=== PATIENT | female | born 1990 | race Caucasian/White ===

== ENCOUNTER 2017-11-06 17:11 | Emergency (ER) | payer OTHER, SELFPAY ==
[2017-11-06 18:40] LABS: #Basophils 0.1 thou/uL (0.0-0.2); #Eosinphils 0.1 thou/uL (0.0-0.7); #Lymphocytes 3.4 thou/uL (1.20-3.40); #Monocytes 0.5 thou/uL (0.11-0.59); #Neutrophils 8.5 thou/uL (1.40-6.50); %Basophils 0.4 % (0.0-1.0); %Lymphocytes 26.9 % (21.0-51.0); %Monocytes 4.1 % (0.0-10.0); %Neutrophils 67.7 % (42.0-75.0); Hemoglobin 13.5 g/dL (12.0-16.0); Mean Corpuscular HGB CONC 33.1 g/dL (32.0-36.0); Mean Corpuscular Hemoglobin 27.3 pg (27.0-31.0); Mean Corpuscular Volume 82.5 fl (81.0-99.0); Mean Platelet Volume 7.6 fL (7.4-10.4); Platelet Count 272 thou/uL (130-400); RBC Distribution Width 14.3 % (11.5-14.5); Red Blood Cell (RBC) Count 4.93 mill/uL (4.20-5.40); White Blood Cell (WBC) Count 12.6 thou/uL (4.8-10.8)
[2017-11-06 19:01] LABS: ALT (SGPT) 10 U/L (8-55); AST (SGOT) 16 U/L (5-34); Albumin 4.3 g/dL (3.5-5.0); Alkaline Phosphatase 71 U/L (40-150); Anion Gap 12 mmol/L (10-20); BUN (Urea Nitrogen) 6 mg/dL (7.0-18.7); Bilirubin, Total 0.4 mg/dL (0.2-1.2); Calc. Creatinine Clearance 0 mL/min (70-130); Calcium 9.5 mg/dL (7.8-10.44); Carbon Dioxide 21 mmol/L (22-29); Chloride 104 mmol/L (98-107); Estimated GFR-MDRD Greater than 90; Globulin 3.8 g/dL (2.4-3.5); Glucose 84 mg/dL (70-105); Potassium 3.2 mmol/L (3.5-5.1); Protein, Total 8.1 g/dL (6.0-8.3); Sodium 134 mmol/L (136-145)
== END 2017-11-06 19:06 | disposition left against medical advice (07) ==
LOC: ERS 17:11
DX: Z53.21 Procedure and treatment not carried out due to patient leaving prior to being seen by health care provider (principal)
CPT/HCPCS: 36415; 80053; 85025

== ENCOUNTER 2018-02-21 13:36 | Day surgery (SDC) | payer OTHER ==
--- NOTE | 2018-02-21 14:50 | PDOC.LDHP ---
Labor and Delivery H&P Chief complaint: abdominal pain HPI: 27 y/o at 29w3d, patient of Dr. Quinteros, presents with lower abdominal pain. Patient has been at [facility] with her son who was released today after a kidney transplant. She was on her way home with him and came straight here for constant lower abdominal and back pain. Denies VB, LOF, or decreased FM. She has not had anything to eat or drink since yesterday. She reports possible STD contact in the last 2 weeks and has had increased discharge. ROS neg for HEENT, cv, pulm, gi, gu, neuro, psych, skin, musculoskeletal or constitutional symptoms other than mentioned above. OB History Details: 1 prior term LTCS for FHRA 2nd LTCS at 30 weeks for PPROM after intervention surgery ( fetus with outlet obstruction, hydronephrosis, oligohydramnios). Current complications: other Past Medical History: Bipolar, anxiety Current medications: pre-murali vitamins, other (Xanax, Lamictal, Prozac) Previous surgical history: low tranverse CS (x2), other (tonsillectomy, intervention surgery (2013)) Allergies/Adverse Reactions: Allergies Allergy/AdvReac Type Severity Reaction Status Date / Time promethazine [From Phenergan] Allergy Verified 02/21/18 15:07 Social history: tobacco use (2 cigarettes per day) - Physical Exam Vital signs reviewed and normal: yes General: NAD, resting Lungs: nonlabored breathing Abdomen: gravid Extremeties: no edema FHT: category 1 (140s, mod variability, + accels, no decels) [place] contractions every: 6 mins, spaced out after fluids - Vaginal Exam cm dilated: 0 Effacement: 0% Station: -3 - OB Labs Blood type: O RH: positive Additional Labs: Laboratory Tests 02/21/18 02/21/18 02/21/18 14:35 14:35 14:50 Urine Color YELLOW Urine Clarity CLOUDY Urine pH 6.5 Ur Specific [place] 1.018 Urine Protein 300 H Urine Glucose (UA) Negative Urine Ketones 40 H Urine Blood Negative Urine Nitrite Negative Urine Bilirubin Negative Urine Urobilinogen 1.0 Ur Leukocyte Esterase Moderate H Urine RBC 0-3 Urine WBC Greater Than 50-TNTC H Ur Squamous Epith Cells 0-3 Urine Bacteria 1+ H Hyaline Casts 4-6 HYALINE CAST H Amnio Swab Test No Membranes Rupture Urine Opiates Screen Detected H Ur Oxycodone Screen Not Detected Urine Methadone Screen Not Detected Ur Propoxyphene Screen Not Detected Ur Barbiturates Screen Not Detected Ur Tricyclics Screen Not Detected Ur Phencyclidine Scrn Not Detected Ur Amphetamines Screen Not Detected U Methamphetamines Scrn Not Detected U Benzodiazepines Scrn Detected H U Cocaine Metab Screen Not Detected U Cannabinoids Screen Detected H Drug Screen Comment Fibronectin 02/21/18 Fibronectin Negative VP3 + for Lu - Assessment 27 y/o at 29w3d with no e/o PTL. Ctx improved after IV fluids. status reassuring with reactive NST. UA consistent with UTI. VP3 + for lu. - Plan -: D/c home with precautions. Given Rx for Macrobid. Advised to use monistat for lu. Follow up as scheduled with Dr. Quinteros on Monday.
[2018-02-21 15:07] LABS: Amnisure Test No Membranes Rupture (No Rupture)
[2018-02-21 15:08] LABS: Amnisure Internal Control QC ACCEPTABLE (ACCEPTABLE)
[2018-02-21 15:13] LABS: Bilirubin Negative (Negative); Blood, Urine Negative (Negative); Clarity CLOUDY (Clear); Glucose, Urine (Dipstick) Negative (Negative); Leukocyte Moderate (Negative); Nitrite Negative (Negative); Protein, Urine (Dipstick) 300 mg/dL (Neg-Trace); Specific Gravity, Urine 1.018 (1.002-1.036); pH, Urine 6.5 (5.0-9.0)
[2018-02-21 15:14] VITALS: BMI 23.0
[2018-02-21 15:15] LABS: Bacteria/HPF 1+ HPF (None Seen); Hyaline Casts/LPF 4-6 HYALINE CAST LPF (0-3 Hyaline); Pathc Cast-AUWi Flag 1.01 (0-2.49); RBC/HPF 0-3 HPF (0-3); Squamous Epithelial 0-3 HPF (0-3)
[2018-02-21 15:28] LABS: FFN Internal QC Analyzer PASS (PASS); FFN Internal QC Cassette PASS (PASS); Fetal Fibronectin Negative (Negative)
[2018-02-21 15:42] LABS: Amphetamine Not Detected (NotDetected); Barbiturates Screen Not Detected (NotDetected); Benzodiazepine Screen Detected (NotDetected); Cocaine Metabolite Screen Not Detected (NotDetected); Medtox Control Line Valid? VALID (VALID); Medtox Reader # READER 1; Methadone Not Detected (NotDetected); Methamphetamine Not Detected (NotDetected); Opiate Screen Detected (NotDetected); Oxycodone Screen Not Detected (NotDetected); Phencyclidine (PCP) Not Detected (NotDetected); THC/Cannabinoid Screen Detected (NotDetected); Tricyclic Screen Not Detected (NotDetected)
[2018-02-21] MEDS ORDERED: Lactated Ringer's 1,000 ML IV SCH (16:00)
== END 2018-02-21 18:02 | disposition home or self-care (01) ==
LOC: L&D/OP 13:36
PROVIDERS: ATTEND Obstetrics & Gynecology
DX: O47.03 False labor before 37 completed weeks of gestation, third trimester (principal); O99.333 Smoking (tobacco) complicating pregnancy, third trimester; F17.210 Nicotine dependence, cigarettes, uncomplicated; Z3A.29 29 weeks gestation of pregnancy; Z88.8 Allergy status to other drugs, medicaments and biological substances
CPT/HCPCS: 51701; 80306; 81001; 82731; 84112; 87480; 87491; 87510; 87591; 87660; 96360; 96361; 99284

== ENCOUNTER 2018-04-08 21:39 | Day surgery (SDC) | payer OTHER ==
[2018-04-08 22:16] VITALS: BP 106/64; TEMP 98.2; BMI 24.8
[2018-04-08] MEDS ORDERED: Bicitra 30 ML UDCUP ONE (22:52)
[2018-04-08] MEDS ORDERED: Ondansetron ODT 8 MG TAB SL SCH (23:00)
[2018-04-08] MEDS ORDERED: Bicitra 30 ML UDCUP PO SCH (23:00)
--- NOTE | 2018-04-08 23:42 | PRG ---
DATE OF SERVICE: 04/08/2018 OB ER ENCOUNTER PRIMARY CONTRACTOR GENERAL BUILDING: Everett Quinteros MD CHIEF COMPLAINT: Heartburn, nausea, vomiting, and back pain. HISTORY OF PRESENT ILLNESS: The patient is a 27-year-old, G3, P2 female with an intrauterine pregnan cy at 36 weeks, who is presenting with several-day history of nausea and vomiting, and not associated with heartburn and lower back pain. The patient reports that her lower back pain is exacerbated wit h activity and movement. She denies uterine contractions. She reports a normal discharge. Denies v aginal bleeding. Denies urinary urgency. Denies any recent illness, fever, fall, headache, chest pa in, shortness of breath, diarrhea, constipation. The patient reports a history of tinea versicolor, which she reports has been returning. PAST MEDICAL HISTORY: Anxiety disorder, bipolar disorder, depression. PAST SURGICAL HISTORY: The patient has had 1 prior . She has had an intrauterine russell apple with her previous . SOCIAL HISTORY: The patient reports about a half pack per day of smoking. Denies drug or alcohol us e. ALLERGIES: No known drug allergies. MEDICATIONS: vitamins and Zofran, which she currently is out of. The patient reports she i s not taking any of her medications for her psychiatric conditions. OBSTETRIC LABORATORY: Blood type is O positive. Antibody screen is reported positive. RPR is nonre active. Hepatitis B surface antigen is nonreactive in the first trimester. RPR is nonreactive in th e first trimester. HIV is nonreactive in the first trimester. GC and chlamydia are negative. She i s rubella immune. Hepatitis C is negative. The patient was noted to have anti-c antibody. REVIEW OF SYSTEMS: Per HPI. PHYSICAL EXAMINATION: VITAL SIGNS: Blood pressure 106/64, heart rate is 70, respiratory rate of 18, temperature 98.2. GENERAL: She appears to be in no acute distress. She is alert and oriented, cooperative, and pleasa nt to interact with. HEENT: Head is normocephalic, atraumatic. LUNGS: Clear to auscultation bilaterally. HEART: Regular rate and rhythm. ABDOMEN: Gravid and soft. She has some ogrxkqw-os-ybnkviam groin tenderness with palpation of the u terus. She also has SI joint tenderness bilaterally. EXTREMITIES: Nontender, nonedematous. CERVICAL EXAM: Closed on last exam. heart tracing performed for back pain. Noted duration is approximately 40 minutes. Baseline i s noted to be in the 130s with moderate long-term variability, positive accelerations, no deceleratio ns. The tocometer showed some irritability, but not felt by the patient. ASSESSMENT AND PLAN: The patient's primary concerns are nausea and vomiting at night, last 3 nights, associated with bad heartburn; and has SI joint tenderness or pain. The patient has no evidence of labor at this time. Fetus has a reactive NST. The patient will be given a dose of Bicitra here to h elp neutralize the acid in her stomach and 8 mg of Zofran sublingually. The patient is being given i nstructions to take a trial of Zantac twice a day [id number] to help with acid reduction, which may help improve her nausea and vomiting. We will also be giving a prescription of Zofran to take p .r.n. #10 and I have encouraged her to take 2 Tylenol 3 times a day to help with her back pain, as we ll as local warmth or heat as needed for back discomfort. The patient will be discharged to home.
== END 2018-04-08 23:10 | disposition home or self-care (01) ==
LOC: L&D/OP 21:39
PROVIDERS: ATTEND Obstetrics & Gynecology
DX: O99.89 Other specified diseases and conditions complicating pregnancy, childbirth and the puerperium (principal); R11.2 Nausea with vomiting, unspecified; R12 Heartburn; M54.9 Dorsalgia, unspecified; Z3A.36 36 weeks gestation of pregnancy
CPT/HCPCS: 99283

== ENCOUNTER 2018-04-30 07:36 | Inpatient (IN) | payer OTHER ==
[2018-04-30 08:20] VITALS: BMI 24.7
--- NOTE | 2018-04-30 08:57 | PDOC.LDHP ---
Labor and Delivery H&P Chief complaint: contractions HPI: 27 y/o at 39w1d, patient of Dr. Quinteros, presents with decreased FM and ctx. Denies VB, LOF, or decreased FM. Ctx every 14-15 mins. ROS neg for HEENT, cv, pulm, gi, gu, neuro, psych, skin, musculoskeletal or constitutional symptoms other than mentioned above. OB History Details: 1 prior LTCS at 30 weeks 1 prior term LTCS Current complications: none Current medications: pre- vitamins Previous surgical history: low tranverse CS (x2) Allergies/Adverse Reactions: Allergies Allergy/AdvReac Type Severity Reaction Status Date / Time No Known Allergies Allergy Verified 04/30/18 08:20 Social history: none - Physical Exam Vital signs reviewed and normal: yes General: NAD, resting Lungs: nonlabored breathing Abdomen: gravid Extremeties: no edema FHT: category 1 (130s, mod variability, + accels, no decels) [place] contractions every: q15 mins - Vaginal Exam cm dilated: 1 Effacement: 0% Station: -3 - OB Labs Blood type: O RH: positive - Assessment 27 y/o at 39w1d with no e/o active labor. Ctx spaced out and less painful after fluids. status reassuring with reactive NST. - Plan -: D/c home with precautions. Scheduled for repeat LTCS on Monday.
[2018-04-30] MEDS ORDERED: Dextrose 5%-Lactated Ringers 1,000 ML IV SCH (09:15)
[2018-04-30] MEDS ORDERED: Ondansetron HCl/PF 4 MG/2 ML Vial IVP PRN ×4 (10:49→22:41)
[2018-04-30] MEDS ORDERED: Promethazine HCl 25 MG/ML VIAL IM PRN ×3 (10:49→22:41)
[2018-04-30] MEDS ORDERED: CEFAZOLIN/Water 2 GM/20 ML SYRINGE SLOW IVP SCH (11:00)
[2018-04-30] MEDS ORDERED: Bicitra 30 ML UDCUP PO SCH (11:00)
[2018-04-30] MEDS: Lactated Ringer's 1,000 ML IV SCH ×3 (11:07→23:29)
[2018-04-30 11:13] LABS: Hemoglobin 10.8 g/dL (12.0-16.0); Mean Corpuscular HGB CONC 31.6 g/dL (32.0-36.0); Mean Corpuscular Hemoglobin 24.6 pg (27.0-31.0); Mean Corpuscular Volume 77.6 fL (78.0-98.0); Mean Platelet Volume 9.2 fL (7.4-10.4); Platelet Count 249 thou/uL (130-400); RBC Distribution Width 13.9 % (11.5-14.5); Red Blood Cell (RBC) Count 4.39 mill/uL (4.20-5.40); White Blood Cell (WBC) Count 9.9 thou/uL (4.8-10.8)
[2018-04-30 11:51] LABS: HBSAg Index 0.24 S/CO (0-0.99); Hep B Surf Ag Non-Reactive S/CO (NonReactive)
[2018-04-30 11:55] LABS: Syphilis Antibody Nonreactive (Nonreactive); Syphilis Antibody Index 0.03 S/CO (<1.00 Non-Reactive)
[2018-04-30 12:29] LABS: Medtox Reader # READER 4
[2018-04-30 12:30] LABS: Amphetamine Not Detected (NotDetected); Barbiturates Screen Not Detected (NotDetected); Benzodiazepine Screen Not Detected (NotDetected); Cocaine Metabolite Screen Not Detected (NotDetected); Medtox Control Line Valid? VALID (VALID); Methadone Not Detected (NotDetected); Methamphetamine Not Detected (NotDetected); Opiate Screen Not Detected (NotDetected); Oxycodone Screen Not Detected (NotDetected); Phencyclidine (PCP) Not Detected (NotDetected); THC/Cannabinoid Screen Not Detected (NotDetected); Tricyclic Screen Not Detected (NotDetected)
[2018-04-30] MEDS: Butorphanol Tartrate 1 MG/ML VIAL SLOW IVP PRN ×2 (15:30→18:30)
[2018-04-30] MEDS ORDERED: Acetaminophen 1,000 MG in Premix Bag 1 BAG IVPB PRN (17:08)
[2018-04-30] MEDS ORDERED: Naloxone HCl 0.4 mg/ml Vial IVP PRN ×2 (17:08)
[2018-04-30] MEDS ORDERED: Eucerin (Mineral Oil/Petrolatum,White) 30 gm Jar TOP PRN (17:08)
[2018-04-30] MEDS ORDERED: Naloxone HCl 0.4 mg/ml Vial IV PRN (17:08)
[2018-04-30] MEDS ORDERED: diphenhydrAMINE 50 MG/ML VIAL IVP PRN (17:08)
[2018-04-30] MEDS ORDERED: Promethazine HCl 25 MG SUPP PR PRN (17:08)
[2018-04-30] MEDS ORDERED: Ketorolac Tromethamine 30 MG/ML VIAL IVP SCH (17:15)
[2018-04-30] MEDS ORDERED: Communication Order-Pharmacy FS SCH (17:15)
--- NOTE | 2018-04-30 19:15 | PDOC.LDPN ---
Labor & Delivery Progress Note - Subjective Subjective: painful contractions - Objective Vital signs reviewed and normal: yes General: breathing through contractions Uterine fundus: non tender SVE: repoeat exam declined -: 39 and 1/7 weeks with oligihydramnios, and early labor with a history of two previous C-Sections. Type and Screen revealed two antibodies in the blood. 2 units of pRBC were ordered but had to be brought in by ground from [place], [place] today, and just arrived about one hour ago. We are next in line to go back for C -Section (3rd, repeat). Patient complains of being hungry and uncomfortable, and is likely anxious from decreased nicotine levels compounding the increased anxiety of having surgery/bipolar disorder.
[2018-04-30] MEDS ORDERED: Morphine PF 1 MG/ML SYR ONE (19:21)
[2018-04-30] MEDS ORDERED: Bupivacaine 0.75% W/DEXTROSE 8.25% 2 ML AMP ONE (19:21)
[2018-04-30] MEDS ORDERED: Lidocaine 1% PF 5 ML VIAL ONE (19:21)
[2018-04-30] MEDS ORDERED: Ondansetron HCl/PF 4 MG/2 ML Vial ONE (19:42)
[2018-04-30] MEDS ORDERED: PHENYLEPHRINE-NS 100 MCG/ML 10 ML SYRINGE ONE (19:42)
[2018-04-30] MEDS ORDERED: Oxytocin 10 UNITS/ML VIAL ONE ×2 (19:56→19:57)
[2018-04-30] MEDS ORDERED: Ketorolac Tromethamine 30 MG/ML VIAL ONE (19:58)
[2018-04-30] MEDS ORDERED: Dexamethasone 4 mg/ml Vial ONE (19:58)
[2018-04-30] MEDS ORDERED: Measles/Mumps/Rubella 10 MCG/0.5 ML VIAL SC ONE (22:41)
[2018-04-30] MEDS ORDERED: Zolpidem Tartrate 5 MG TAB PO PRN (22:41)
[2018-04-30] MEDS ORDERED: Methylergonovine 0.2 MG/ML VIAL IM PRN (22:41)
[2018-04-30] MEDS ORDERED: NS / Oxytocin 40 units/1000ml 1,000 ML IV SCH (22:41)
[2018-04-30] MEDS ORDERED: Varicella virus, LIVE 0.5 ML VIAL SC ONE (22:41)
[2018-04-30] MEDS ORDERED: Lanolin Ointment 7 GM TUBE TOP PRN (22:41)
[2018-04-30] MEDS ORDERED: Adacel (T-DAP) 0.5 ML VIAL IM ONE (22:41)
[2018-04-30] MEDS ORDERED: Misoprostol 200 MCG TAB PR PRN (22:41)
[2018-04-30] MEDS ORDERED: Bisacodyl 10 MG SUPP PR PRN (22:41)
[2018-04-30] MEDS ORDERED: diphenhydrAMINE 25 MG CAP PO PRN (22:41)
[2018-04-30] MEDS ORDERED: Docusate Calcium (SURFAK) 240 MG CAP PO SCH (23:15)
[2018-04-30] MEDS ORDERED: Acetaminophen 1,000 MG in Premix Bag 1 BAG IVPB SCH (23:30)
[2018-05-01] MEDS: Ketorolac Tromethamine 30 MG/ML VIAL IVP SCH ×4 (01:32→22:59)
[2018-05-01] MEDS ORDERED: Sodium Chloride 0.9% 10 ML ONE (05:35)
[2018-05-01 05:39] LABS: Hemoglobin 9.9 g/dL (12.0-16.0); Mean Corpuscular HGB CONC 31.3 g/dL (32.0-36.0); Mean Corpuscular Hemoglobin 24.5 pg (27.0-31.0); Mean Corpuscular Volume 78.3 fL (78.0-98.0); Mean Platelet Volume 7.9 fL (7.4-10.4); Platelet Count 295 thou/uL (130-400); RBC Distribution Width 13.9 % (11.5-14.5); Red Blood Cell (RBC) Count 4.05 mill/uL (4.20-5.40); White Blood Cell (WBC) Count 18.9 thou/uL (4.8-10.8)
[2018-05-01] MEDS: Simethicone Chewable 80 MG TAB PO PRN ×2 (07:37→20:06)
[2018-05-01] MEDS: Docusate Calcium (SURFAK) 240 MG CAP PO SCH ×2 (09:18→20:07)
[2018-05-01] MEDS: Prenatal Vitamin 1 TAB PO SCH (09:18)
[2018-05-01] MEDS: HYDROcodone/Acetaminophen 5/325 mg Tablet PO PRN ×2 (09:19→20:06)
[2018-05-01] MEDS: Ibuprofen 800 MG TAB PO SCH ×2 (15:11→21:47)
--- NOTE | 2018-05-01 19:02 | PDOC.PP ---
Post Progress Note Post Day #: 1 Subjective: Patient ambulating well, no new complaints. PO intake tolerated: yes Flatus: yes Ambulation: yes Vital Signs (12 hours) Temp Pulse Resp BP Pulse Ox 05/01/18 16:23 98.1 F 64 18 116/54 L 100 05/01/18 07:30 97.2 F L 67 13 91/52 L Weight Weight 140 lb - Physical Examination General: NAD Cardiovascular: no m/r/g Respiratory: clear to auscultation bilaterally Abdominal: + bowel sounds Skin: CS incision dry & intact Neurological: no gross focal deficits Psychiatric: A&Ox3 Result Diagrams: 05/01/18 05:05 Additional Labs: Post Labs Blood Type O POSITIVE 04/30/18 09:22 Hep Bs Antigen Non-Reactive S/CO (NonReactive) 04/30/18 09:22 - Assessment/Plan POD #1, Possible DC tomorrow. Patient will restart home Xantac for GERD.
[2018-05-02] MEDS: Ibuprofen 800 MG TAB PO SCH (05:33)
[2018-05-02] MEDS: HYDROcodone/Acetaminophen 5/325 mg Tablet PO PRN ×2 (05:33→09:30)
[2018-05-02] MEDS: Docusate Calcium (SURFAK) 240 MG CAP PO SCH (09:27)
[2018-05-02] MEDS: Prenatal Vitamin 1 TAB PO SCH (09:27)
[2018-05-02 10:16] VITALS: TEMP 97.9
[2018-05-02 11:54] VITALS: BP 120/56
--- NOTE | 2018-05-02 11:54 | OP ---
DATE OF SERVICE: 04/30/2018 PREOPERATIVE DIAGNOSES: Intrauterine at 39 weeks and 1 day with oligohydramnios, history o f two previous sections, and early labor. POSTOPERATIVE DIAGNOSES: Intrauterine at 39 weeks 1 day with oligohydramnios, history of t wo previous sections, and early labor. PROCEDURE: Repeat low transverse section. FINDINGS: Viable female weighing 2962 grams or 6 pounds 8 ounces, Apgars 8 and 9. Quantitati ve blood loss 425 mL COMPLICATIONS: None. DETAILS OF THE PROCEDURE: The patient was consented and taken back to the operating room where spina l anesthesia was found to be adequate. She was then prepped and draped in the normal sterile fashion . A time out was performed by the entire operative team. The incision was then marked with a marking pen tested using sharp pickups. An incision was then made with a scalpel. The incision was carried through the adipose tissue down to the underlying rectus fascia using both sharp dissection as well as cautery. Once the fascia was identified, it was incised in the midline and then the fascial incis ion was carried through in both lateral directions using sharp as well as cautery dissection techniqu es. Next, the superior aspect of the rectus fascia was grasped with 2 Sammy clamps which was tented up and the rectus muscles were dissected off using blunt dissection as well as cautery dissection. Similarly, the inferior aspect of the fascial incision was grasped with 2 Sammy clamps, tented up an d the rectus muscles were dissected off bluntly as well as sharply. Next, the rectus muscles were se parated in the midline and the peritoneum identified. The peritoneum was then carefully grasped with two hemostats and entered sharply. The peritoneal incision was extended superiorly and inferiorly a nd bladder blade was placed in the lower abdomen. At this point, the uterus was identified and the b ladder flap was then developed using pickups with teeth as well as Metzenbaum scissors in both latera l directions. The bladder flap was then dissected downwards using the skiff operator's finger as well as M etzenbaum scissors. The bladder blade was replaced. The lower uterine segment was then identified a nd entered sharply using a clean scalpel. The uterine incision was then dissected downwards until th in layer of muscle remained and this was entered bluntly using a hemostat to avoid any injury to the baby. The uterine incision was then stretched using two fingers in both lateral directions. An amniotomy was performed artificially using a hemostat and the baby was delivered using fundal pres sure in a gentle fashion. Once out, the baby's mouth and nose were bulb suctioned, cord clamped and cut, and the baby was handed to waiting attendants. Next, the uterus was exteriorized, cleared of al l clots and debris and the uterine incision was repaired with #1 Monocryl in a running locking fashio n. A second suture of the same type was used to obtain complete hemostasis at the uterine incision. The bladder flap was reapproximated using 3-0 Monocryl. Next, patient's left and right adnexa were inspected and appeared to be within normal limits. The posterior cul-de-sac was blotted dry and hemo stasis assured. One more look at the uterine incision demonstrated hemostasis. Next, the uterus was replaced back within the abdomen. The peritoneum was reapproximated using 2-0 Monocryl without diff iculty. The rectus muscles were then allowed to come back together and 0 chromic was used to aid in reapproximation of the muscle as necessary. The rectus fascia was then reapproximated in a running f ashion using 0 Vicryl suture. The adipose tissue was then examined and appeared to be well approxima joseph without any obvious separations. Finally, the skin was reapproximated with 3-0 Monocryl on a Lopez th needle without difficulty and Dermabond adhesive was applied to the skin. Once the glue was dry, the drapes were removed and the patient was transferred to an ambulatory bed where she was taken to [facility] awake and in stable condition. Sponge, lap, and needle counts were correct x3.
[2018-05-02] MEDS ORDERED: Ibuprofen 800 MG TAB PO SCH (22:00)
== END 2018-05-02 13:25 | disposition home or self-care (01) | DRG 765 ==
LOC: L&D/OP 07:36 → L&D 10:55 → 3SW 22:41
PROVIDERS: ADMIT Obstetrics & Gynecology; ATTEND Obstetrics & Gynecology
PROC: 10D00Z1 Extraction of Products of Conception, Low, Open Approach (ICD-10-PCS; principal; 2018-04-30)
DX: O34.211 Maternal care for low transverse scar from previous cesarean delivery (principal); O41.03X0 Oligohydramnios, third trimester, not applicable or unspecified; O99.62 Diseases of the digestive system complicating childbirth; K21.9 Gastro-esophageal reflux disease without esophagitis; Z3A.39 39 weeks gestation of pregnancy; Z37.0 Single live birth
CPT/HCPCS: 36415; 51702; 76815; 80306; 85027; 86780; 86850; 86870; 86900; 86901; 86905; 86922; 87340; 99285; A4216; J0131; J0595; J1100; J1885; J2001; J2274; J2405; J2590; J3490

== ENCOUNTER 2018-07-01 20:55 | Emergency (ER) | payer OTHER | END 2018-07-01 21:35 | disposition home or self-care (01) | LOC: ERS 20:55 | DX: L30.4 Erythema intertrigo (principal); F98.8 Other specified behavioral and emotional disorders with onset usually occurring in childhood and adolescence; R63.0 Anorexia; F17.210 Nicotine dependence, cigarettes, uncomplicated; F42.9 Obsessive-compulsive disorder, unspecified; F41.9 Anxiety disorder, unspecified; F31.9 Bipolar disorder, unspecified | CPT/HCPCS: 99282 ==

== ENCOUNTER 2019-05-17 14:02 | Emergency (ER) | payer MEDICAID, OTHER ==
[2019-05-17] MEDS ORDERED: traMADol HCl 50 MG TAB ONE (14:44)
[2019-05-17] MEDS ORDERED: Dexamethasone 10 MG/ML VIAL ONE (14:44)
== END 2019-05-17 14:55 | disposition home or self-care (01) ==
LOC: ERS 14:02
DX: J20.9 Acute bronchitis, unspecified (principal); Z71.6 Tobacco abuse counseling; F31.9 Bipolar disorder, unspecified; F98.8 Other specified behavioral and emotional disorders with onset usually occurring in childhood and adolescence; F42.9 Obsessive-compulsive disorder, unspecified; F17.210 Nicotine dependence, cigarettes, uncomplicated; F41.9 Anxiety disorder, unspecified; Z79.899 Other long term (current) drug therapy
CPT/HCPCS: 99406; J1100

== ENCOUNTER 2020-12-22 09:25 | Emergency (ER) | payer MEDICARE, MEDICAID ==
[2020-12-22] MEDS ORDERED: Lidocaine 1% (PF) 30 ML VIAL ONE (09:48)
[2020-12-22] MEDS ORDERED: Ketorolac Tromethamine 30 MG/ML VIAL ONE (11:15)
[2020-12-22] MEDS ORDERED: Boostrix 0.5 ML (Tdap) VIAL ONE (11:15)
[2020-12-22] MEDS ORDERED: Bacitracin 1 PK ONE (11:15)
== END 2020-12-22 11:45 | disposition home or self-care (01) ==
LOC: ERS 09:25
DX: L02.413 Cutaneous abscess of right upper limb (principal); L02.423 Furuncle of right upper limb; F17.210 Nicotine dependence, cigarettes, uncomplicated
CPT/HCPCS: 10060; 90471; 90715; 96372; J1885; J2001

== ENCOUNTER 2022-04-22 15:13 | Emergency (ER) | payer MEDICAID, MEDICARE ==
[2022-04-22] MEDS ORDERED: Lidocaine 1% (PF) 30 ML VIAL ONE (15:53)
[2022-04-22] MEDS ORDERED: Lidocaine 1% MPF 2 ML VIAL ONE (15:54)
[2022-04-22] MEDS ORDERED: HYDROcodone/Acetaminophen 10/325 mg Tablet ONE (16:13)
== END 2022-04-22 16:32 | disposition home or self-care (01) ==
LOC: ERS 15:13
DX: N76.4 Abscess of vulva (principal); F17.210 Nicotine dependence, cigarettes, uncomplicated
CPT/HCPCS: 56405; J2001

== ENCOUNTER 2022-05-07 02:09 | Emergency (ER) | payer MEDICAID, MEDICARE | END 2022-05-07 03:29 | disposition home or self-care (01) | LOC: ERS 02:09 | DX: T19.2XXA Foreign body in vulva and vagina, initial encounter (principal); F17.210 Nicotine dependence, cigarettes, uncomplicated | CPT/HCPCS: 99283 ==

== ENCOUNTER 2022-07-03 22:32 | Emergency (ER) | payer MEDICARE, MEDICAID ==
[2022-07-03 23:10] LABS: #Eosinphils 0.4 thou/uL (0.0-0.7); #Lymphocytes 2.2 thou/uL (1.20-3.40); #Monocytes 0.7 thou/uL (0.11-0.59); #Neutrophils 3.7 thou/uL (1.40-6.50); %Basophils 0.4 % (0.0-1.0); %Eosinophils 6.1 % (0.0-10.0); %Lymphocytes 31.5 % (21.0-51.0); %Monocytes 10.1 % (0.0-10.0); %Neutrophils 51.8 % (42.0-75.0); Mean Corpuscular HGB CONC 33.4 g/dL (32.0-36.0); Mean Corpuscular Hemoglobin 30.6 pg (27.0-31.0); Mean Corpuscular Volume 91.7 fl (78.0-98.0); Mean Platelet Volume 7.2 fL (7.4-10.4); Platelet Count 250 10x3/uL (130-400); RBC Distribution Width 12.8 % (11.5-14.5); Red Blood Cell (RBC) Count 4.24 mill/uL (4.20-5.40); White Blood Cell (WBC) Count 7.1 10x3/uL (4.8-10.8)
[2022-07-03 23:32] LABS: ALT (SGPT) 11 U/L (8-55); AST (SGOT) 14 U/L (5-34); Albumin 4.2 g/dL (3.5-5.0); Alkaline Phosphatase 74 U/L (40-110); Anion Gap 11 mmol/L (10-20); BUN (Urea Nitrogen) 9 mg/dL (7.0-18.7); Bilirubin, Total 0.2 mg/dL (0.2-1.2); Calc. Creatinine Clearance 0 mL/min (70-130); Calcium 9.1 mg/dL (7.8-10.44); Carbon Dioxide 27 mmol/L (22-29); Chloride 102 mmol/L (98-107); Estimated GFR 97; Globulin 3.2 g/dL (2.4-3.5); Glucose 82 mg/dL (70-105); Potassium 3.7 mmol/L (3.5-5.1); Protein, Total 7.4 g/dL (6.0-8.3); Sodium 136 mmol/L (136-145)
[2022-07-03 23:43] LABS: BHCG - Serum Negative (NEGATIVE); Pregs Control Background? CLEAR/WHITE (CLR/WHITE); Pregs Control Bar Appear? YES (CONTROL BAR)
== END 2022-07-04 00:20 | disposition home or self-care (01) ==
LOC: ERS 22:32
DX: R07.1 Chest pain on breathing (principal); F17.210 Nicotine dependence, cigarettes, uncomplicated
CPT/HCPCS: 36415; 71045; 80053; 84484; 84703; 85025; 85379; 93005

== ENCOUNTER 2022-07-04 09:17 | Emergency (ER) | payer MEDICARE, MEDICAID ==
[2022-07-04] MEDS ORDERED: Acetaminophen 500 MG TAB ONE (09:55)
== END 2022-07-04 10:55 | disposition home or self-care (01) ==
LOC: ERS 09:17
DX: J10.1 Influenza due to other identified influenza virus with other respiratory manifestations (principal)
CPT/HCPCS: 87804; 99283

== ENCOUNTER 2022-07-12 18:06 | Emergency (ER) | payer MEDICARE, MEDICAID ==
[2022-07-12] MEDS ORDERED: Acetaminophen 500 MG TAB ONE (18:43)
[2022-07-12] MEDS ORDERED: Ondansetron PF 4 MG/2 ML Vial ONE (18:43)
[2022-07-12 18:52] LABS: #Basophils 0.1 thou/uL (0.0-0.2); #Eosinphils 0.4 thou/uL (0.0-0.7); #Lymphocytes 5.5 thou/uL (1.20-3.40); #Monocytes 0.6 thou/uL (0.11-0.59); #Neutrophils 4.7 thou/uL (1.40-6.50); %Basophils 0.5 % (0.0-1.0); %Eosinophils 3.6 % (0.0-10.0); %Lymphocytes 48.4 % (21.0-51.0); %Monocytes 5.7 % (0.0-10.0); %Neutrophils 41.8 % (42.0-75.0); Hemoglobin 14.3 g/dL (12.0-16.0); Mean Corpuscular HGB CONC 32.5 g/dL (32.0-36.0); Mean Corpuscular Hemoglobin 29.2 pg (27.0-31.0); Mean Corpuscular Volume 89.8 fl (78.0-98.0); Mean Platelet Volume 7.6 fL (7.4-10.4); Platelet Count 391 10x3/uL (130-400); RBC Distribution Width 12.9 % (11.5-14.5); White Blood Cell (WBC) Count 11.3 10x3/uL (4.8-10.8)
[2022-07-12 18:58] LABS: Bilirubin 2+ (Negative); Blood, Urine Negative (Negative); Clarity Clear (Clear); Glucose, Urine (Dipstick) Normal (Negative); Ketone, Urine Negative (Negative); Leukocyte Negative Leu/uL (Negative); Nitrite 2+ (Negative); Protein, Urine (Dipstick) Negative (Neg-Trace); RBC/HPF 0-3 HPF (0-3); Specific Gravity, Urine 1.006 (1.002-1.036); Squamous Epithelial 0-3 HPF (0-3); WBC/HPF 0-3 HPF (0-3)
[2022-07-12 19:02] LABS: BHCG - Serum Negative (NEGATIVE); Pregs Control Background? CLEAR/WHITE (CLR/WHITE); Pregs Control Bar Appear? YES (CONTROL BAR)
[2022-07-12 19:02] LABS: Bacteria/HPF 1+ HPF (None Seen)
== END 2022-07-12 20:57 | disposition home or self-care (01) ==
LOC: ERS 18:06
DX: J11.1 Influenza due to unidentified influenza virus with other respiratory manifestations (principal); E86.0 Dehydration; R11.2 Nausea with vomiting, unspecified; F17.210 Nicotine dependence, cigarettes, uncomplicated
CPT/HCPCS: 81003; 81015; 84703; 85025; 93005; 96361; 96374; J2405

== ENCOUNTER 2022-11-27 09:44 | Observation (INO) | payer MEDICAID, SELFPAY ==
[~2022-11-27 09:44] MED LIST: Iopamidol-370 76% 500 ML MDV (1 ML CHARGE) ONE
[2022-11-27] MEDS ORDERED: Ondansetron PF 4 MG/2 ML Vial ONE (11:08)
[2022-11-27] MEDS ORDERED: Famotidine/PF 20 mg/2ml Vial ONE (11:08)
[2022-11-27 11:55] LABS: #Basophils 0.1 thou/uL (0.0-0.2); #Eosinphils 0.4 thou/uL (0.0-0.7); #Lymphocytes 3.4 thou/uL (1.20-3.40); #Monocytes 0.6 thou/uL (0.11-0.59); #Neutrophils 6.4 thou/uL (1.40-6.50); %Basophils 0.8 % (0.0-1.0); %Eosinophils 3.9 % (0.0-10.0); %Lymphocytes 30.9 % (21.0-51.0); %Monocytes 5.7 % (0.0-10.0); %Neutrophils 58.8 % (42.0-75.0); Hemoglobin 12.7 g/dL (12.0-16.0); Mean Corpuscular Volume 84.7 fl (78.0-98.0); Mean Platelet Volume 8.1 fL (7.4-10.4); Platelet Count 354 10x3/uL (130-400); Red Blood Cell (RBC) Count 4.54 mill/uL (4.20-5.40); White Blood Cell (WBC) Count 10.9 10x3/uL (4.8-10.8)
[2022-11-27 11:59] LABS: BHCG - Serum Negative (NEGATIVE); Pregs Control Background? CLEAR/WHITE (CLR/WHITE); Pregs Control Bar Appear? YES (CONTROL BAR)
[2022-11-27 12:09] LABS: ALT (SGPT) 13 U/L (8-55); AST (SGOT) 18 U/L (5-34); Albumin 4.7 g/dL (3.5-5.0); Alkaline Phosphatase 93 U/L (40-110); Anion Gap 18 mmol/L (10-20); BUN (Urea Nitrogen) 9 mg/dL (7.0-18.7); Bilirubin, Total 0.4 mg/dL (0.2-1.2); Calc. Creatinine Clearance 0 mL/min (70-130); Calcium 9.6 mg/dL (7.8-10.44); Carbon Dioxide 26 mmol/L (22-29); Chloride 101 mmol/L (98-107); Estimated GFR 103; Globulin 3.4 g/dL (2.4-3.5); Glucose 89 mg/dL (70-105); Lipase 13 U/L (8-78); Potassium 4.1 mmol/L (3.5-5.1); Protein, Total 8.1 g/dL (6.0-8.3); Sodium 141 mmol/L (136-145)
[2022-11-27] MEDS ORDERED: Acetaminophen 500 MG TAB ONE (13:03)
[2022-11-27] MEDS ORDERED: Ketorolac Tromethamine 30 MG/ML VIAL ONE (13:11)
[2022-11-27 13:13] LABS: Bilirubin Negative (Negative); Blood, Urine Negative (Negative); Clarity Clear (Clear); Glucose, Urine (Dipstick) Normal (Negative); Ketone, Urine Negative (Negative); Leukocyte Negative Leu/uL (Negative); Nitrite Negative (Negative); Protein, Urine (Dipstick) Negative (Neg-Trace); Specific Gravity, Urine 1.011 (1.002-1.036); Urobilinogen Normal mg/dL (Less than 2); pH, Urine 7.5 (5.0-9.0)
[2022-11-27] MEDS ORDERED: cefTRIAXone (ROCEPHIN) 2 GM VIAL ONE (14:30)
[2022-11-27 14:49] LABS: Lactic Acid 1.5 mmol/L (0.5-2.2)
[2022-11-27] MEDS ORDERED: Acetaminophen 325 MG TAB PO PRN (16:32)
[2022-11-27] MEDS ORDERED: Ondansetron PF 4 MG/2 ML Vial IVP PRN (16:32)
[2022-11-27] MEDS ORDERED: cefTRIAXone\\ROCEPHIN 1 GM in Sodium Chloride 0.9% 100 ML IVPB SCH (16:45)
[2022-11-27] MEDS: Sodium Chloride 0.9% 1,000 ML IV SCH (21:06)
[2022-11-27 23:19] VITALS: BMI 32.5
[2022-11-28] MEDS: Sodium Chloride 0.9% 1,000 ML IV SCH ×3 (01:11→14:22)
[2022-11-28 06:15] LABS: #Basophils 0.1 thou/uL (0.0-0.2); #Eosinphils 0.6 thou/uL (0.0-0.7); #Lymphocytes 3.7 thou/uL (1.20-3.40); #Monocytes 0.5 thou/uL (0.11-0.59); #Neutrophils 4.7 thou/uL (1.40-6.50); %Basophils 0.7 % (0.0-1.0); %Eosinophils 6.4 % (0.0-10.0); %Lymphocytes 38.5 % (21.0-51.0); %Monocytes 5.2 % (0.0-10.0); %Neutrophils 49.2 % (42.0-75.0); Hemoglobin 10.2 g/dL (12.0-16.0); Mean Corpuscular HGB CONC 32.5 g/dL (32.0-36.0); Mean Corpuscular Hemoglobin 27.9 pg (27.0-31.0); Mean Platelet Volume 7.9 fL (7.4-10.4); Platelet Count 303 10x3/uL (130-400); Red Blood Cell (RBC) Count 3.65 mill/uL (4.20-5.40); White Blood Cell (WBC) Count 9.5 10x3/uL (4.8-10.8)
[2022-11-28 06:51] LABS: Anion Gap 11 mmol/L (10-20); BUN (Urea Nitrogen) 8 mg/dL (7.0-18.7); Calc. Creatinine Clearance 146 mL/min (70-130); Calcium 8.1 mg/dL (7.8-10.44); Carbon Dioxide 22 mmol/L (22-29); Chloride 110 mmol/L (98-107); Estimated GFR 113; Glucose 88 mg/dL (70-105); Potassium 3.6 mmol/L (3.5-5.1); Sodium 139 mmol/L (136-145)
[2022-11-28] MEDS ORDERED: cefTRIAXone\\ROCEPHIN 1 GM in Sodium Chloride 0.9% 100 ML IVPB SCH (15:00)
[2022-11-28 17:08] VITALS: BP 109/75; TEMP 98.1
== END 2022-11-28 17:20 | disposition home or self-care (01) ==
LOC: ERS 09:44 → SURG A 16:11
PROVIDERS: ADMIT Internal Medicine; ATTEND Internal Medicine
DX: R11.10 Vomiting, unspecified (principal); E87.20 Acidosis, unspecified; F17.210 Nicotine dependence, cigarettes, uncomplicated; Z79.890 Hormone replacement therapy; Z79.899 Other long term (current) drug therapy; Z88.8 Allergy status to other drugs, medicaments and biological substances
CPT/HCPCS: 36415; 74177; 80048; 80053; 81003; 83605; 83690; 84484; 84703; 85025; 87040; 93005; 96372; 96376; G0378; J0696; J1650; J1885; J2405; J7050; Q9967; S0028

== ENCOUNTER 2023-03-26 08:39 | Emergency (ER) | payer SELFPAY ==
[2023-03-26] MEDS ORDERED: metroNIDAZOLE 250 MG TAB ONE (09:28)
[2023-03-26] MEDS ORDERED: cefTRIAXone (ROCEPHIN) 500 MG VIAL ONE (09:28)
[2023-03-26] MEDS ORDERED: Doxycycline 100 MG CAP ONE (09:28)
[2023-03-26] MEDS ORDERED: Lidocaine 1% PF 5 ML VIAL ONE (09:28)
[2023-03-26 20:41] LABS: Chlamydia by PCR, Vaginal Swab Not Detected (NotDetected); GC by PCR, Vaginal Swab Not Detected (NotDetected)
== END 2023-03-26 10:03 | disposition home or self-care (01) ==
LOC: ERS 08:39
DX: A59.9 Trichomoniasis, unspecified (principal); F17.210 Nicotine dependence, cigarettes, uncomplicated
CPT/HCPCS: 87480; 87491; 87510; 87591; 87660; 96372; 99283; J0696

== ENCOUNTER 2023-06-03 09:53 | Emergency (ER) | payer SELFPAY | END 2023-06-03 10:15 | disposition home or self-care (01) | LOC: ERS 09:53 | DX: T19.2XXA Foreign body in vulva and vagina, initial encounter (principal); F17.210 Nicotine dependence, cigarettes, uncomplicated | CPT/HCPCS: 99283 ==

== ENCOUNTER 2023-09-19 12:33 | Emergency (ER) | payer SELFPAY | END 2023-09-19 14:04 | disposition left against medical advice (07) | LOC: ERS 12:33 | DX: Z53.21 Procedure and treatment not carried out due to patient leaving prior to being seen by health care provider (principal) ==

== ENCOUNTER 2023-10-17 10:45 | Emergency (ER) | payer MEDICAID ==
[2023-10-17] MEDS ORDERED: Ondansetron ODT 8 MG TAB ONE (11:11)
== END 2023-10-17 11:50 | disposition home or self-care (01) ==
LOC: ERS 10:45
DX: K52.9 Noninfective gastroenteritis and colitis, unspecified (principal); F17.210 Nicotine dependence, cigarettes, uncomplicated
CPT/HCPCS: 99283; Q0162

== ENCOUNTER 2024-01-22 09:17 | Emergency (ER) | payer SELFPAY ==
[2024-01-22] MEDS ORDERED: Ondansetron PF 4 MG/2 ML Vial ONE (09:38)
[2024-01-22 09:59] LABS: #Basophils 0.03 10x3/uL (0.0-0.2); %Basophils 0.3 % (0.0-1.0); %Eosinophils 2.1 % (0.0-10.0); %Lymphocytes 38.2 % (21.0-51.0); %Neutrophils 55.2 % (42.0-75.0); Hematocrit 40.8 % (36.0-47.0); Hemoglobin 13.5 g/dL (12.0-16.0); Mean Corpuscular HGB CONC 33.1 g/dL (32.0-36.0); Mean Corpuscular Hemoglobin 28.2 pg (27.0-31.0); Mean Corpuscular Volume 85.4 fL (78.0-98.0); Mean Platelet Volume 10.3 fL (7.4-10.4); Platelet Count 323 10x3/uL (130-400); RBC Distribution Width 12.7 % (11.5-14.5); Red Blood Cell (RBC) Count 4.78 mill/uL (4.20-5.40)
[2024-01-22 10:07] LABS: BHCG - Serum Negative (NEGATIVE); Pregs Control Background? CLEAR/WHITE (CLR/WHITE); Pregs Control Bar Appear? YES (CONTROL BAR)
[2024-01-22 10:17] LABS: ALT (SGPT) 48 U/L (8-55); AST (SGOT) 40 U/L (5-34); Albumin 3.9 g/dL (3.5-5.0); Alkaline Phosphatase 78 U/L (40-110); Anion Gap 15 mmol/L (10-20); BUN (Urea Nitrogen) 8 mg/dL (7.0-18.7); Bilirubin, Total 0.4 mg/dL (0.2-1.2); Calc. Creatinine Clearance 0 mL/min (70-130); Calcium 9.1 mg/dL (7.8-10.44); Carbon Dioxide 22 mmol/L (22-29); Chloride 103 mmol/L (98-107); Estimated GFR 117; Globulin 3.6 g/dL (2.4-3.5); Glucose 88 mg/dL (70-105); Lipase 10 U/L (8-78); Potassium 3.8 mmol/L (3.5-5.1); Protein, Total 7.5 g/dL (6.0-8.3); Sodium 136 mmol/L (136-145)
== END 2024-01-22 11:20 | disposition home or self-care (01) ==
LOC: ERS 09:17
DX: K52.9 Noninfective gastroenteritis and colitis, unspecified (principal); F17.210 Nicotine dependence, cigarettes, uncomplicated
CPT/HCPCS: 36415; 80053; 83690; 83735; 84703; 85025; 96361; 96374; J2405

== ENCOUNTER 2024-01-31 11:46 | Emergency (ER) | payer SELFPAY ==
[2024-01-31] MEDS ORDERED: cefTRIAXone (ROCEPHIN) 500 MG VIAL ONE (12:06)
[2024-01-31] MEDS ORDERED: Lidocaine 1% MPF 2 ML VIAL ONE (12:06)
[2024-01-31 18:19] LABS: Chlamydia by PCR, Vaginal Swab Not Detected (NotDetected); GC by PCR, Vaginal Swab Not Detected (NotDetected)
== END 2024-01-31 12:30 | disposition home or self-care (01) ==
LOC: ERS 11:46
DX: N89.8 Other specified noninflammatory disorders of vagina (principal); J45.909 Unspecified asthma, uncomplicated; F17.210 Nicotine dependence, cigarettes, uncomplicated; Z20.2 Contact with and (suspected) exposure to infections with a predominantly sexual mode of transmission
CPT/HCPCS: 87480; 87491; 87510; 87591; 87660; 96372; 99283; J0696

== ENCOUNTER 2024-02-07 06:29 | Emergency (ER) | payer SELFPAY ==
[2024-02-07 07:18] LABS: #Basophils 0.03 10x3/uL (0.0-0.2); #Eosinphils Less than 0.03 10x3/uL (0.0-0.7); %Basophils 0.3 % (0.0-1.0); %Lymphocytes 11.4 % (21.0-51.0); %Monocytes 2.1 % (0.0-10.0); %Neutrophils 85.9 % (42.0-75.0); Hematocrit 45.2 % (36.0-47.0); Hemoglobin 14.9 g/dL (12.0-16.0); Mean Platelet Volume 10.1 fL (7.4-10.4); Platelet Count 434 10x3/uL (130-400); RBC Distribution Width 14.1 % (11.5-14.5); Red Blood Cell (RBC) Count 5.32 mill/uL (4.20-5.40)
[2024-02-07] MEDS ORDERED: Ketorolac Tromethamine 30 MG (1 mL) VIAL ONE (07:21)
[2024-02-07] MEDS ORDERED: Ondansetron PF 4 MG/2 ML Vial ONE (07:21)
[2024-02-07 07:38] LABS: BHCG - Serum Negative (NEGATIVE); Pregs Control Background? CLEAR/WHITE (CLR/WHITE); Pregs Control Bar Appear? YES (CONTROL BAR)
[2024-02-07 07:44] LABS: ALT (SGPT) 22 U/L (8-55); AST (SGOT) 24 U/L (5-34); Albumin 4.5 g/dL (3.5-5.0); Alkaline Phosphatase 81 U/L (40-110); Anion Gap 18 mmol/L (10-20); BUN (Urea Nitrogen) 10 mg/dL (7.0-18.7); Bilirubin, Total 0.6 mg/dL (0.2-1.2); Calc. Creatinine Clearance 0 mL/min (70-130); Calcium 10.2 mg/dL (7.8-10.44); Carbon Dioxide 20 mmol/L (22-29); Chloride 104 mmol/L (98-107); Estimated GFR 104; Glucose 108 mg/dL (70-105); Potassium 3.8 mmol/L (3.5-5.1); Protein, Total 8.5 g/dL (6.0-8.3); Sodium 138 mmol/L (136-145)
[2024-02-07 08:25] LABS: Bacteria/HPF Rare-Few HPF (None Seen); Bilirubin Negative (Negative); Blood, Urine 3+ (Negative); CAUTI Indications for Culture Pelvic or flank pain; Clarity Clear (Clear); Glucose, Urine (Dipstick) 30 mg/dL (Negative); Ketone, Urine 100 mg/dL (Negative); Leukocyte 25 Leu/uL (Negative); Nitrite Negative (Negative); Protein, Urine (Dipstick) 70 mg/dL (Neg-Trace); RBC/HPF 21-50 HPF (0-3); Specific Gravity, Urine 1.039 (1.002-1.036); Squamous Epithelial 0-3 HPF (0-3); Urobilinogen Normal mg/dL (Less than 2); WBC/HPF 0-3 HPF (0-3)
[2024-02-07 08:26] LABS: Urine Culture Reflex No No
== END 2024-02-07 08:35 | disposition home or self-care (01) ==
LOC: ERS 06:29
DX: R10.9 Unspecified abdominal pain (principal); R11.2 Nausea with vomiting, unspecified; F17.210 Nicotine dependence, cigarettes, uncomplicated
CPT/HCPCS: 81001; 83690; 84703; 85025; 96361; 96374; 96375; J1885; J2405

== ENCOUNTER 2024-02-09 05:35 | Emergency (ER) | payer SELFPAY ==
[2024-02-09] MEDS ORDERED: Metoclopramide HCl 10 MG (2 mL) VIAL ONE (05:54)
[2024-02-09 06:38] LABS: Acetaminophen Less than 10 mcg/mL (10.0-30.0); Alcohol Less than 10.0 mg/dL (Less than 10); Lipase 15 U/L (8-78); Salicylate Less than 8.0 mg/dL (15.0-30.0)
[2024-02-09 06:39] LABS: ALT (SGPT) 19 U/L (8-55); AST (SGOT) 22 U/L (5-34); Albumin 4.2 g/dL (3.5-5.0); Alkaline Phosphatase 68 U/L (40-110); Anion Gap 16 mmol/L (10-20); BUN (Urea Nitrogen) 14 mg/dL (7.0-18.7); Bilirubin, Total 0.7 mg/dL (0.2-1.2); Calc. Creatinine Clearance 0 mL/min (70-130); Calcium 9.4 mg/dL (7.8-10.44); Carbon Dioxide 21 mmol/L (22-29); Chloride 102 mmol/L (98-107); Estimated GFR 112; Globulin 3.6 g/dL (2.4-3.5); Glucose 82 mg/dL (70-105); Potassium 3.5 mmol/L (3.5-5.1); Protein, Total 7.8 g/dL (6.0-8.3); Sodium 135 mmol/L (136-145)
[2024-02-09 06:40] LABS: #Basophils 0.05 10x3/uL (0.0-0.2); %Basophils 0.6 % (0.0-1.0); %Eosinophils 1.8 % (0.0-10.0); %Lymphocytes 40.5 % (21.0-51.0); %Monocytes 6.7 % (0.0-10.0); %Neutrophils 50.2 % (42.0-75.0); Hematocrit 43.2 % (36.0-47.0); Hemoglobin 14.4 g/dL (12.0-16.0); Mean Corpuscular HGB CONC 33.3 g/dL (32.0-36.0); Mean Corpuscular Hemoglobin 27.9 pg (27.0-31.0); Mean Corpuscular Volume 83.7 fL (78.0-98.0); Mean Platelet Volume 10.2 fL (7.4-10.4); Platelet Count 303 10x3/uL (130-400); RBC Distribution Width 13.8 % (11.5-14.5); Red Blood Cell (RBC) Count 5.16 mill/uL (4.20-5.40)
[2024-02-09 06:48] LABS: Bacteria/HPF None Seen HPF (None Seen); Bilirubin Negative (Negative); Blood, Urine Trace (Negative); CAUTI Indications for Culture Pelvic or flank pain; Clarity Clear (Clear); Glucose, Urine (Dipstick) Normal (Negative); Ketone, Urine 20 mg/dL (Negative); Leukocyte Negative Leu/uL (Negative); Nitrite Negative (Negative); Protein, Urine (Dipstick) 30 mg/dL (Neg-Trace); RBC/HPF 0-3 HPF (0-3); Specific Gravity, Urine 1.034 (1.002-1.036); Urobilinogen Normal mg/dL (Less than 2)
[2024-02-09 06:51] LABS: Pregnancy Test - Urine (BHCG) Negative (Negative); Pregu Control Background? CLEAR/WHITE (CLR/WHITE); Pregu Control Bar Appear? YES (CONTROL BAR); Specific Gravity 1.034 (1.002-1.036)
[2024-02-09 06:52] LABS: Urine Culture Reflex No No
== END 2024-02-09 08:15 | disposition home or self-care (01) ==
LOC: ERS 05:35
DX: R11.2 Nausea with vomiting, unspecified (principal); T38.3X5A Adverse effect of insulin and oral hypoglycemic [antidiabetic] drugs, initial encounter; F17.210 Nicotine dependence, cigarettes, uncomplicated; R82.4 Acetonuria
CPT/HCPCS: 80053; 80307; 81001; 81025; 83690; 83735; 85025; 96365; 96366; J2765

== ENCOUNTER 2024-08-09 07:24 | Emergency (ER) | payer SELFPAY | END 2024-08-09 08:42 | disposition home or self-care (01) | LOC: ERS 07:24 | DX: K02.9 Dental caries, unspecified (principal); F17.210 Nicotine dependence, cigarettes, uncomplicated | CPT/HCPCS: 99282 ==

== ENCOUNTER 2024-08-26 09:42 | Emergency (ER) | payer SELFPAY | END 2024-08-26 10:14 | disposition home or self-care (01) | LOC: ERS 09:42 | DX: Z03.6 Encounter for observation for suspected toxic effect from ingested substance ruled out (principal); F17.210 Nicotine dependence, cigarettes, uncomplicated | CPT/HCPCS: 99283 ==